=== PATIENT | female | born 1965 | race Caucasian/White ===

== ENCOUNTER 2024-01-06 00:50 | Emergency (ER) | payer SELFPAY ==
[~2024-01-06] VITALS: Ht 170.2 cm; Wt 88.0 kg
[2024-01-06 00:59] VITALS: O2SAT 99
[2024-01-06 01:03] VITALS: BP 150/93; PULSE 102; RESP 20; TEMP 98.8; O2SAT 100
[2024-01-06] MEDS ORDERED: BACITRACIN ZINC OINT UDPKT TOP ONE (01:15)
[2024-01-06] MEDS ORDERED: LIDOCAINE HCL/PF 1% 10 MG/ML 5ML VIAL INFIL ONE (01:15)
[2024-01-06] MEDS: TETANUS, DIPHTHERIA, PERTUSSIS VAC/PF 0.5ML (>10YR OLD) IM ONE (01:30)
== END 2024-01-06 01:18 | disposition left against medical advice (07) ==
LOC: ER 00:50
DX: S61.256A Open bite of right little finger without damage to nail, initial encounter (principal); Y04.1XXA Assault by human bite, initial encounter; Y93.89 Activity, other specified; Y92.89 Other specified places as the place of occurrence of the external cause; Y99.8 Other external cause status
CPT/HCPCS: 99281; J3490